=== PATIENT | male | born 1965 | race Caucasian/White ===

== ENCOUNTER → 2018-08-04 | Outpatient (CLI) | payer MEDICAID | LOC: FIMAGING 14:03 | PROVIDERS: ATTEND Nurse Practitioner | DX: M19.041 Primary osteoarthritis, right hand (principal) ==

== ENCOUNTER 2018-09-01 11:33 | Day surgery (SDC) | payer MEDICAID ==
--- NOTE | 2018-09-01 06:56 | PDHPUP ---
History & Physical Update H&P update statement: This history and physical update is based on an assessment of the patient which was completed after admission or registration (within 24 hours), but prior to the surgery/procedure. H&P update: H&P reviewed & patient examined, no change in patient's condition since H&P completed
[2018-09-01] MEDS ORDERED: LIDOCAINE 1% 2 ML INJ ONE (11:55)
[2018-09-01] MEDS ORDERED: BUPIVACAINE/EPI 0.5% 30 ML SDV ONE (12:33)
[2018-09-01] MEDS ORDERED: LIDO/EPI 1% **for epidural** 30 ML SDV ONE (12:33)
[2018-09-01] MEDS ORDERED: LIDOCAINE 1% 2 ML INJ ID PRN (12:46)
[2018-09-01] MEDS ORDERED: LR 1,000 ML IV ONE (12:46)
[2018-09-01] MEDS ORDERED: ceFAZolin 2 GM/DEXTROSE 100 ML IV ONE (14:33)
[2018-09-01] MEDS ORDERED: PROPOFOL/EMULSION 500 MG/50 ML BOTTLE IV ONE (14:44)
[2018-09-01] MEDS ORDERED: MIDAZOLAM 2 MG/2 ML VIAL ONE ×2 (14:49→14:56)
[2018-09-01] MEDS ORDERED: ceFAZolin 3 GM in D5W 100 ML IV ONE (15:00)
[2018-09-01] MEDS ORDERED: fentaNYL 100 MCG/2 ML INJ ONE (15:06)
[2018-09-01] MEDS ORDERED: PROPOFOL 200 MG/20 ML VIAL ONE (15:06)
[2018-09-01] MEDS ORDERED: ALBUTEROL 3 ML DEYVIAL IH PRN (15:14)
[2018-09-01] MEDS ORDERED: fentaNYL 100 MCG/2 ML INJ IVP PRN (15:14)
[2018-09-01] MEDS ORDERED: ONDANSETRON 4 MG/2 ML VIAL IVP PRN (15:14)
[2018-09-01] MEDS ORDERED: HYDROCODONE/APAP 5/325 TAB PO PRN (15:14)
[2018-09-01] MEDS ORDERED: ACETAMINOPHEN 500 MG TAB PO PRN (15:14)
[2018-09-01] MEDS ORDERED: DEXAMETHASONE 4 MG/ML VIAL IVP PRN (15:14)
[2018-09-01] MEDS ORDERED: NALOXONE HCL 0.4 MG/ML INJ IVP PRN (15:14)
[2018-09-01] MEDS ORDERED: LR 500 ML IV PRN (15:14)
[2018-09-01] MEDS ORDERED: DIAZEPAM 5 MG/ML 1 ML SYR IVP PRN (15:14)
[2018-09-01] MEDS ORDERED: oxyCODONE IR 5 MG TAB PO PRN (15:14)
--- NOTE | 2018-09-01 15:14 | PDANEPAE ---
BETSY Past Medical History - Cardiovascular History Hx Hypertension: No Hx Arrhythmias: No Hx Chest Pain: No Hx Coronary Artery / Peripheral Vascular Disease: No Hx CHF / Valvular Disease: No Hx Palpitations: No - Pulmonary History Hx COPD: No Hx Asthma/Reactive Airway Disease: No Hx Recent Upper Respiratory Infection: No Hx Oxygen in Use at Home: No Hx Sleep Apnea: No Sleep Apnea Screening Result - Last Documented: Positive Pulmonary History Comment: 09/08-URI, resolved. - Neurologic History Hx Cerebrovascular Accident: No Hx Seizures: Yes Hx Dementia: No Neurologic History Comment: seizure disorder. none for over the last year - Endocrine History Hx Diabetes: No - Renal History Hx Renal Disorders: No - Liver History Hx Hepatic Disorders: No Hepatic History Comment: cyst on liver. - Neurological & Psychiatric Hx Hx Neurological and Psychiatric Disorders: No - Cancer History Hx Cancer: Yes Cancer History Comment: New onset of lymphoma, now in remission - Congenital Disorder History Hx Congenital Disorders: No - GI History Hx Gastrointestinal Disorders: Yes Gastrointestinal History Comment: acid reflux - Other Health History Other Health History: Anal warts. mildly [place] - Chronic Pain History Chronic Pain: Yes (R THUMB) - Surgical History Prior Surgeries: 1991-R knee scope. 1993-L knee scope. 1995-L shoulder scope. couple of procedure with Dr toshia MEYER Review of Systems Review of Systems: - Exercise capacity METS (RN): 4 METS BETSY Patient History - Allergies Allergies/Adverse Reactions: No Known Allergies Allergy (Unverified 08/25/18 15:18) - Home Medications Home Medications: Gabapentin [Neurontin 300 MG (*)] 600 mg 07/08/15 [Last Taken 09/01/18 08:00] Aspirin 08/25/18 [Last Taken 08/23/18] Esomeprazole Magnesium 08/25/18 [Last Taken 09/01/18 08:00] Lorazepam 08/25/18 [Last Taken 08/14/18] Multivitamin 08/25/18 [Last Taken 09/01/18 08:00] Vimpat 08/25/18 [Last Taken 09/01/18 08:00] Loratadine/Pseudoephedrine [Claritin-D 24 Hour Tablet] 1 each PO DAILY 09/01/18 [Last Taken 09/01/18 08:00] - NPO status NPO Since - Liquids (Date): 09/01/18 NPO Since - Liquids (Time): 08:00 NPO Since - Solids (Date): 08/31/18 NPO Since - Solids (Time): 23:50 - Smoking Hx Smoking Status: Never smoked - Family Anes Hx Family Hx Anesthesia Complications: none ANE Labs/Vital Signs - Vital Signs Blood Pressure: 128/102 Heart Rate: 76 Respiratory Rate: 15 O2 Sat (%): 92 Height: 182.88 cm Weight: 136.078 kg ANE Physical Exam - Airway Neck exam: FROM Mallampati Score: Class 3 Mouth exam: normal dental/mouth exam - Pulmonary Pulmonary: no respiratory distress, no rales or rhonchi, reduced air movement - Cardiovascular Cardiovascular: regular rate and rhythym, no murmur, rub, or gallop - ASA Status ASA Status: III ANE Anesthesia Plan Anesthesia Plan: GA w LMA
[2018-09-01] MEDS ORDERED: ONDANSETRON 4 MG/2 ML VIAL ONE (15:17)
--- NOTE | 2018-09-01 15:37 | POSTOPPROG ---
Post Op Note Date of Operation: 09/01/18 Surgeon: Frank Jimenez Anesthesiologist: Jhoana Gudino Anesthesia: GET(General Endotracheal) Pre-op Diagnosis: Perineal condyloma Post-op Diagnosis: Same Procedure: Excision/fulguration of multiple perineal condyoma Findings: multiple fungating condyloma. normal anal exam Inf/Abcess present in the surg proc area at time of surgery?: No EBL: Minimal Specimen(s): condylomata
[2018-09-01 17:06] VITALS: BP 125/81
--- NOTE | 2018-09-01 18:28 | GOP ---
[f rep st] OPERATIVE REPORT DATE OF OPERATION: 09/01/2018 SURGEON: Frank Jimenez MD ANESTHESIA: General. ANESTHESIOLOGIST: Jhoana Gudino MD. PREOPERATIVE DIAGNOSIS: Perineal condyloma. POSTOPERATIVE DIAGNOSIS: Perineal condyloma. PROCEDURE PERFORMED: Excision/fulguration of multiple perineal condylomata. FINDINGS: See below. INDICATIONS: 52-year-old male with a significant history for lymphoma, as well as anal condylomatous disease. He has developed a large bulky recurrence for which he is undergoing surgical excision at this time. Risks and benefits were explained of bleeding, infection, and recurrence, as well as ongoing wound management issues. All questions were answered. He desires to proceed. DESCRIPTION OF PROCEDURE: After general anesthesia was induced, the patient was placed in candy-cane stirrups. Visual perineal exam disclosed multiple fungating sessile condylomata scattered throughout the perineum from beneath the scrotum to just anterior to the anal verge. Digital rectal exam was unremarkable. Anoscopy showed no intrarectal lesions. Lesions ranged in size from 1 cm to approximately 3 cm. Local anesthetic was infiltrated throughout all areas of concern. Using electrocautery, the lesions were all completely excised to healthy-appearing subcutaneous tissues. Each wound bed was fulgurated using electrocautery. No further lesions were present upon completion. Satisfactory hemostasis was assured. Xeroform gauze was applied. The patient was taken the recovery room awake uneventfully. /[id number]/MODL MTDD
== END 2018-09-01 17:19 | disposition home or self-care (01) ==
LOC: FSGY 11:33
PROVIDERS: ATTEND Surgery
DX: A63.0 Anogenital (venereal) warts (principal); C85.90 Non-Hodgkin lymphoma, unspecified, unspecified site; Z92.21 Personal history of antineoplastic chemotherapy
CPT/HCPCS: J0690; J2250; J2405; J2704; J3010